=== PATIENT | female | born 1935 | race Caucasian/White ===

== ENCOUNTER → 2017-04-27 | Outpatient (CLI) | payer MEDICARE, OTHER ==
--- NOTE | 2017-04-27 14:54 | REP ---
THORACIC SPINE, THREE VIEWS: HISTORY: Back pain. There is no acute fracture or subluxation. There is loss of height on several mid and lower thoracic intervertebral discs. Osteophytes are present in the mid and lower thoracic spine. There is scoliosis of the mid and lower thoracic spine convex to the right. IMPRESSION: Degenerative change as described above.
--- NOTE | 2017-04-27 14:55 | REP ---
CERVICAL SPINE, SEVEN VIEWS: HISTORY: Neck pain. The cervical spine is visualized from C1 to the C6-7 level in the lateral radiographs. There is no acute fracture. The C4-5 through C6-7 intervertebral discs are decreased in height consistent with disc degeneration. Osteophytes are present on C4 through 6. There neural foramina are not well seen, however, the appears to be narrowing of the C5 neural foramina secondary to uncinate process hypertrophy. There are 2 mm of anterior subluxation of C4 on 5. This is unchanged with flexion and reduces to 1.5 mm with extension. IMPRESSION: Degenerative change as described above.
== END ==
LOC: M CLY 13:27
PROVIDERS: ATTEND Family Medicine
DX: M50.30 Other cervical disc degeneration, unspecified cervical region (principal); M54.6 Pain in thoracic spine
CPT/HCPCS: 72050; 72072; G0463

== ENCOUNTER → 2019-03-11 | Outpatient (CLI) | payer MEDICARE, OTHER ==
--- NOTE | 2019-03-11 14:40 | REP ---
CHEST X-RAY: Three views. HISTORY: Chronic obstructive pulmonary disease. COMPARISON CHEST X-RAY: December 13, 2006. 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 The aorta is more tortuous. Heart size is borderline. Cardiothoracic ratio today measures 47.6%. Pulmonary vasculature is not increased. Pleural angles are sharp. IMPRESSION: Chronic discoid atelectasis left base. Otherwise no acute disease. The heart size is borderline.
== END ==
LOC: M CLY 13:33
PROVIDERS: ATTEND Family Medicine
DX: J98.11 Atelectasis (principal); J44.9 Chronic obstructive pulmonary disease, unspecified
CPT/HCPCS: 71046; G0463

== ENCOUNTER → 2019-05-02 | Outpatient (REF) | payer MEDICARE, OTHER ==
[2019-05-02 17:36] LABS: CALCIUM LEVEL 9.2 MG/DL (8.8-10.2); CREATININE FOR GFR 1.06 MG/DL (0.55-1.30); GLOMERULAR FILTRATION RATE 52.8 (>32); POTASSIUM SERUM 4.6 MEQ/L (3.5-5.1)
== END ==
LOC: M SFHCCLAY 13:39
PROVIDERS: ATTEND Nurse Practitioner Family
DX: I10 Essential (primary) hypertension (principal)

== ENCOUNTER → 2019-08-21 | Outpatient (REF) | payer MEDICARE, OTHER | LOC: M LAB REF 13:07 | PROVIDERS: ATTEND Internal Medicine Pulmonary Disease | DX: J20.9 Acute bronchitis, unspecified (principal) | CPT/HCPCS: 87070; 87077; 87186; 87205; 87804; G0463 ==

== ENCOUNTER → 2019-09-19 | Outpatient (CLI) | payer MEDICARE, OTHER ==
--- NOTE | 2019-09-19 15:22 | REP ---
Clinical: Cough. Technique: PA and lateral. Comparison: 03/11/2019. Findings: Chronic changes related to COPD and emphysematous disease. No acute consolidation, effusion, or pneumothorax. Mediastinum and cardiac silhouette are stable within normal limits. Skeletal structures demonstrate chronic degenerative changes and scoliosis. Impression: Chronic stable changes. No obvious acute process. Electronically Signed by Rey Armstrong MD 09/19/2019 03:14 P
== END ==
LOC: M CLY 14:49
PROVIDERS: ATTEND Family Medicine
DX: R05 Cough (principal)
CPT/HCPCS: 71046; G0463

== ENCOUNTER → 2021-07-05 | Outpatient (REF) | payer MEDICARE, OTHER ==
[2021-07-05 16:42] LABS: BASO # 0.1 10^3/uL (0.0-0.2); BASO % 0.7 % (0.0-1.0); EOS # 0.2 10^3/uL (0.0-0.5); EOS % 2.1 % (0.0-3.0); HEMATOCRIT 43.2 % (36.0-47.0); HEMOGLOBIN 13.8 g/dl (12.0-15.5); LYMPH # 1.5 10^3/uL (1.5-5.0); LYMPH % 21.4 % (24.0-44.0); MEAN CORPUSCULAR HEMOGLOBIN 30.3 pg (27.0-33.0); MEAN CORPUSCULAR HGB CONC 31.9 g/dl (32.0-36.5); MEAN CORPUSCULAR VOLUME 94.7 fl (80.0-96.0); MONO # 0.6 10^3/uL (0.0-0.8); MONO % 8.6 % (2.0-8.0); NEUTROPHILS # 4.7 10^3/uL (1.5-8.5); NEUTROPHILS % 67.1 % (36.0-66.0); PLATELET COUNT, AUTOMATED 238 10^3/uL (150-450); RED BLOOD COUNT 4.56 10^6/uL (4.00-5.40); WHITE BLOOD COUNT 7.1 10^3/uL (4.0-10.0)
[2021-07-05 17:21] LABS: ALBUMIN 3.6 GM/DL (3.2-5.2); BILIRUBIN,TOTAL 0.6 MG/DL (0.2-1.0); CALCIUM LEVEL 9.5 MG/DL (8.8-10.2); CREATININE FOR GFR 0.96 MG/DL (0.55-1.30); GLOMERULAR FILTRATION RATE 58.9 (>32); MAGNESIUM LEVEL 2.6 MG/DL (1.8-2.4); POTASSIUM SERUM 3.9 MEQ/L (3.5-5.1); TOTAL PROTEIN 6.9 GM/DL (6.4-8.2)
== END ==
LOC: M SFHCCLAY 11:52
PROVIDERS: ATTEND Nurse Practitioner Family
DX: I10 Essential (primary) hypertension (principal)

== ENCOUNTER → 2022-01-20 | Outpatient (REF) | payer MEDICARE, OTHER ==
[2022-01-21 11:18] LABS: BASO % 0.5 % (0.0-1.0); EOS # 0.3 10^3/uL (0.0-0.5); EOS % 3.3 % (0.0-3.0); HEMATOCRIT 43.3 % (36.0-47.0); HEMOGLOBIN 14.1 g/dl (12.0-15.5); LYMPH # 1.4 10^3/uL (1.5-5.0); LYMPH % 16.9 % (24.0-44.0); MEAN CORPUSCULAR HEMOGLOBIN 31.3 pg (27.0-33.0); MEAN CORPUSCULAR HGB CONC 32.6 g/dl (32.0-36.5); MEAN CORPUSCULAR VOLUME 96.2 fl (80.0-96.0); MONO # 0.6 10^3/uL (0.0-0.8); MONO % 7.1 % (2.0-8.0); PLATELET COUNT, AUTOMATED 230 10^3/uL (150-450); WHITE BLOOD COUNT 8.3 10^3/uL (4.0-10.0)
[2022-01-21 11:24] LABS: ALBUMIN 3.7 GM/DL (3.2-5.2); ALT/SGPT 28 U/L (12-78); BILIRUBIN,TOTAL 0.7 MG/DL (0.2-1.0); BLOOD UREA NITROGEN 15 MG/DL (7-18); C REACTIVE PROTEIN QUANTITATIV 8.42 MG/DL (0.00-0.30); CALCIUM LEVEL 9.9 MG/DL (8.8-10.2); CARBON DIOXIDE LEVEL 32 MEQ/L (21-32); CHLORIDE LEVEL 103 MEQ/L (98-107); CREATININE FOR GFR 0.99 MG/DL (0.55-1.30); GLOMERULAR FILTRATION RATE 56.8 (>32); GLUCOSE, FASTING 108 MG/DL (70-100); POTASSIUM SERUM 3.6 MEQ/L (3.5-5.1); RHEUMATOID FACTOR QUANT < 10.0 IU/ML (<15.0); SODIUM LEVEL 139 MEQ/L (136-145); TOTAL PROTEIN 7.3 GM/DL (6.4-8.2)
[2022-01-21 11:39] LABS: ERYTHROCYTE SEDIMENTATION RATE 39 mm/hr (0-30)
[2022-01-24 23:07] LABS: ANA (HEP2) Negative (.); CYCLIC CITRULLINATED PEPTIDE 8 units (0-19); Lyme Disease IgG/IgM Antibodie <0.91 ISR (0.00-0.90); Lyme Disease IgM Ab Quantitati <0.80 index (0.00-0.79)
== END ==
LOC: M SFHCCLAY 13:49
PROVIDERS: ATTEND Physician Assistant
DX: M25.50 Pain in unspecified joint (principal)

== ENCOUNTER → 2022-09-05 | Outpatient (REF) | payer MEDICARE, OTHER | LOC: M SFHCRHEU 14:56 | PROVIDERS: ATTEND Internal Medicine | DX: M06.4 Inflammatory polyarthropathy (principal); L40.9 Psoriasis, unspecified; M79.10 Myalgia, unspecified site; Z11.59 Encounter for screening for other viral diseases ==

== ENCOUNTER → 2022-09-07 | Outpatient (REF) | payer MEDICARE, OTHER ==
[2022-09-07 13:48] LABS: BASO % 0.6 % (0.0-1.0); EOS # 0.5 10^3/uL (0.0-0.5); EOS % 8.2 % (0.0-3.0); HEMATOCRIT 44.8 % (36.0-47.0); HEMOGLOBIN 13.9 g/dl (12.0-15.5); LYMPH # 1.6 10^3/uL (1.5-5.0); LYMPH % 25.2 % (24.0-44.0); MEAN CORPUSCULAR HEMOGLOBIN 30.3 pg (27.0-33.0); MEAN CORPUSCULAR VOLUME 97.6 fl (80.0-96.0); MONO # 0.6 10^3/uL (0.0-0.8); MONO % 9.7 % (2.0-8.0); NEUTROPHILS # 3.5 10^3/uL (1.5-8.5); PLATELET COUNT, AUTOMATED 262 10^3/uL (150-450); RED BLOOD COUNT 4.59 10^6/uL (4.00-5.40); WHITE BLOOD COUNT 6.3 10^3/uL (4.0-10.0)
[2022-09-07 14:10] LABS: ERYTHROCYTE SEDIMENTATION RATE 30 mm/hr (0-30)
[2022-09-07 14:11] LABS: ALBUMIN 3.5 GM/DL (3.2-5.2); ALKALINE PHOSPHATASE 68 U/L (45-117); ALT/SGPT 23 U/L (12-78); AST/SGOT 15 U/L (7-37); BILIRUBIN,DIRECT 0.2 MG/DL (0.0-0.2); BILIRUBIN,TOTAL 0.5 MG/DL (0.2-1.0); BLOOD UREA NITROGEN 11 MG/DL (7-18); CALCIUM LEVEL 9.9 MG/DL (8.8-10.2); CARBON DIOXIDE LEVEL 28 MEQ/L (21-32); CHLORIDE LEVEL 105 MEQ/L (98-107); COMPLEMENT C3 144 MG/DL (90-180); COMPLEMENT C4 33 MG/DL (10-40); GLOMERULAR FILTRATION RATE > 60.0 (>32); GLUCOSE, FASTING 77 MG/DL (70-100); IRON (FE) 90 UG/DL (50-170); PHOSPHORUS LEVEL 2.7 MG/DL (2.5-4.9); POTASSIUM SERUM 3.5 MEQ/L (3.5-5.1); SODIUM LEVEL 139 MEQ/L (136-145); TOTAL PROTEIN 7.1 GM/DL (6.4-8.2)
[2022-09-07 14:35] LABS: HEPATITIS B SURFACE ANTIBODY NEGATIVE (POSITIVE); VITAMIN B12 LEVEL 379 PG/ML (247-911)
[2022-09-07 14:45] LABS: HEPATITIS B SURFACE ANTIGEN NEGATIVE (NEGATIVE)
[2022-09-07 14:58] LABS: CREATININE,RANDOM URINE 28.5 MG/DL; TOTAL PROTEIN,RANDOM URINE < 5.0 MG/DL (0.0-12.0)
[2022-09-07 15:13] LABS: HEPATITIS C VIRUS ABY INDEX < 0.0 INDEX (<0.8)
[2022-09-07 15:41] LABS: APPEARANCE, URINE MANUAL CLEAR (CLEAR); BILIRUBIN, URINE MANUAL NEGATIVE (NEGATIVE); BLOOD URINE MANUAL NEGATIVE (NEGATIVE); COLOR, URINE MANUAL LT YELLOW (YELLOW); GLUCOSE, URINE (UA) MANUAL NEGATIVE (NEGATIVE); KETONE, URINE MANUAL NEGATIVE (NEGATIVE); LEUKOCYTE ESTERASE, URINE MAN POSITIVE (NEGATIVE); NITRITE, URINE MANUAL NEGATIVE (NEGATIVE); PROTEIN, URINE MANUAL NEGATIVE (NEGATIVE); SPECIFIC GRAVITY,URINE MANUAL 1.025 (1.002-1.035); UROBILINOGEN, URINE MANUAL NORMAL (NORMAL)
[2022-09-07 16:29] LABS: BACTERIA, URINE SMALL AMOUNT; RBC, URINE 0-1 /hpf (0-3); SQUAMOUS EPITHELIAL CELL URINE SMALL AMOUNT /hpf (SMALL AMT); WBC, URINE 0-1 /hpf (0-3)
[2022-09-15 10:26] LABS: DRVV SCREEN 34.5 SEC
[2022-09-15 10:49] LABS: PTT LUPUS TYPE ANTICOAG SCREEN 0.9 (0-1.2)
[2022-09-16 23:07] LABS: COMPLEMENT TOTAL (CH50) > 60 U/mL (>41); HEPATITIS B CORE ANTIBODY IGG Negative (Negative); HLA-B27 Negative (.)
== END ==
LOC: M SFHCRHEU 10:02
PROVIDERS: ATTEND Internal Medicine
DX: M06.4 Inflammatory polyarthropathy (principal); L40.9 Psoriasis, unspecified; M79.10 Myalgia, unspecified site; Z11.59 Encounter for screening for other viral diseases

== ENCOUNTER → 2022-10-20 | Outpatient (CLI) | payer MEDICARE, OTHER | LOC: M WHC 11:02 | PROVIDERS: ATTEND Internal Medicine | DX: M85.851 Other specified disorders of bone density and structure, right thigh (principal); M85.852 Other specified disorders of bone density and structure, left thigh ==

== ENCOUNTER → 2023-10-03 | Outpatient (REF) | payer MEDICARE, OTHER ==
[2023-10-03 11:55] LABS: HEMATOCRIT 38.3 % (36.0-47.0); HEMOGLOBIN 12.4 g/dl (12.0-15.5); MEAN CORPUSCULAR HEMOGLOBIN 31.2 pg (27.0-33.0); MEAN CORPUSCULAR HGB CONC 32.4 g/dl (32.0-36.5); MEAN CORPUSCULAR VOLUME 96.2 fl (80.0-96.0); PLATELET COUNT, AUTOMATED 259 10^3/uL (150-450); RED BLOOD COUNT 3.98 10^6/uL (4.00-5.40); WHITE BLOOD COUNT 5.5 10^3/uL (4.0-10.0)
[2023-10-03 12:18] LABS: C REACTIVE PROTEIN QUANTITATIV < 0.40 MG/DL (<1.0)
[2023-10-03 12:26] LABS: ALBUMIN 3.3 G/DL (3.2-5.2); ALKALINE PHOSPHATASE 65 U/L (46-116); ALT/SGPT 21 U/L (7.0-40); AST/SGOT 24 U/L (<34); BILIRUBIN,TOTAL 0.6 MG/DL (0.3-1.2); BLOOD UREA NITROGEN 18 MG/DL (9-23); CALCIUM LEVEL 9.8 MG/DL (8.3-10.6); CARBON DIOXIDE LEVEL 30 MMOL/L (20-31); CHLORIDE LEVEL 104 MMOL/L (98-107); CHOLESTEROL LEVEL 231 MG/DL (<200); CHOLESTEROL RISK RATIO 4.09 (<5); CREATININE FOR GFR 0.86 MG/DL (0.55-1.30); GLOMERULAR FILTRATION RATE > 60.0 (>32); GLUCOSE, FASTING 84 MG/DL (74-106); HDL CHOLESTEROL 56.4 MG/DL (>40); LDL CHOLESTEROL 154.2 MG/DL (<100); NON-HDL-C 174.6 MG/DL; POTASSIUM SERUM 4.1 MMOL/L (3.5-5.1); SODIUM LEVEL 138 MMOL/L (136-145); TOTAL PROTEIN 6.2 G/DL (5.7-8.2); TRIGLYCERIDES LEVEL 102 MG/DL (<150)
[2023-10-03 13:03] LABS: ERYTHROCYTE SEDIMENTATION RATE 26 mm/hr (0-30)
== END ==
LOC: M SFHCCLAY 08:22
PROVIDERS: ATTEND Family Medicine
DX: I10 Essential (primary) hypertension (principal); E78.2 Mixed hyperlipidemia; M54.12 Radiculopathy, cervical region

== ENCOUNTER 2024-03-13 19:18 | Emergency (ER) | payer MEDICARE, OTHER ==
[2024-03-13] MEDS ORDERED: FLUT1BLS3 IH (20:11)
[2024-03-13] MEDS ORDERED: PANT40TA29 PO (20:12)
[2024-03-13] MEDS ORDERED: HYDR12.55 PO (20:13)
[2024-03-13] MEDS ORDERED: APRE30TA3 PO (20:14)
[2024-03-13] MEDS ORDERED: TIMO0.5S20 (20:17)
[2024-03-13] MEDS ORDERED: IBUP1TAB7 PO (20:17)
[2024-03-13] MEDS ORDERED: BIMA01SOL (20:17)
[2024-03-13] MEDS ORDERED: ISOVUE-370 76% 100ML VIAL As Ordered ONE (21:23)
[2024-03-13 21:28] LABS: BASO % 0.6 % (0.0-1.0); EOS # 0.2 10^3/uL (0.0-0.5); EOS % 3.1 % (0.0-3.0); HEMATOCRIT 40.4 % (36.0-47.0); HEMOGLOBIN 13.3 g/dl (12.0-15.5); LYMPH # 2.6 10^3/uL (1.5-5.0); LYMPH % 36.8 % (24.0-44.0); MEAN CORPUSCULAR HEMOGLOBIN 31.1 pg (27.0-33.0); MEAN CORPUSCULAR HGB CONC 32.9 g/dl (32.0-36.5); MEAN CORPUSCULAR VOLUME 94.4 fl (80.0-96.0); MONO # 0.6 10^3/uL (0.0-0.8); NEUTROPHILS # 3.7 10^3/uL (1.5-8.5); NEUTROPHILS % 51.4 % (36.0-66.0); PLATELET COUNT, AUTOMATED 256 10^3/uL (150-450); RED BLOOD COUNT 4.28 10^6/uL (4.00-5.40); WHITE BLOOD COUNT 7.1 10^3/uL (4.0-10.0)
[2024-03-13 21:41] LABS: INR 0.99; PROTHROMBIN TIME 12.8 SECONDS (12.5-14.5)
[2024-03-13 21:56] LABS: ALBUMIN 3.3 G/DL (3.2-5.2); ALKALINE PHOSPHATASE 70 U/L (46-116); ALT/SGPT 20 U/L (7.0-40); AST/SGOT 20 U/L (<34); BILIRUBIN,DIRECT < 0.1 MG/DL (<0.4); BILIRUBIN,TOTAL 0.3 MG/DL (0.3-1.2); TOTAL PROTEIN 6.3 G/DL (5.7-8.2)
[2024-03-13 22:45] VITALS: BP 203/87; TEMP 97.2; O2SAT 96
== END 2024-03-13 23:03 | disposition home or self-care (01) ==
LOC: M ED 19:18
DX: R91.8 Other nonspecific abnormal finding of lung field (principal); I45.10 Unspecified right bundle-branch block; I44.7 Left bundle-branch block, unspecified; J45.909 Unspecified asthma, uncomplicated; J44.9 Chronic obstructive pulmonary disease, unspecified; K21.9 Gastro-esophageal reflux disease without esophagitis; Z87.891 Personal history of nicotine dependence; Z88.8 Allergy status to other drugs, medicaments and biological substances; Z88.0 Allergy status to penicillin; Z91.013 Allergy to seafood; Z79.899 Other long term (current) drug therapy; Z79.1 Long term (current) use of non-steroidal anti-inflammatories (NSAID)
CPT/HCPCS: 36415; 71046; 71275; 80047; 80076; 83880; 85025; 85610; 87205; 93005; 99284; Q9967

== ENCOUNTER 2024-03-18 16:53 | Inpatient (IN) | payer MEDICARE, OTHER ==
[~2024-03-18] VITALS: Ht 157.5 cm; Wt 66.7 kg
[~2024-03-18 16:53] MED LIST: APRE30TA3 PO; BIMA01SOL; FLUT1BLS3 IH; HYDR12.55 PO; IBUP1TAB7 PO; PANT40TA29 PO; TIMO0.5S20
[2024-03-18 18:30] LABS: BASO % 0.6 % (0.0-1.0); EOS # 0.1 10^3/uL (0.0-0.5); EOS % 2.1 % (0.0-3.0); HEMATOCRIT 39.2 % (36.0-47.0); HEMOGLOBIN 13.1 g/dl (12.0-15.5); LYMPH # 1.9 10^3/uL (1.5-5.0); MEAN CORPUSCULAR HEMOGLOBIN 31.3 pg (27.0-33.0); MEAN CORPUSCULAR HGB CONC 33.4 g/dl (32.0-36.5); MEAN CORPUSCULAR VOLUME 93.8 fl (80.0-96.0); MONO # 0.5 10^3/uL (0.0-0.8); MONO % 7.4 % (2.0-8.0); NEUTROPHILS # 4.2 10^3/uL (1.5-8.5); NEUTROPHILS % 61.8 % (36.0-66.0); PLATELET COUNT, AUTOMATED 242 10^3/uL (150-450); RED BLOOD COUNT 4.18 10^6/uL (4.00-5.40); WHITE BLOOD COUNT 6.8 10^3/uL (4.0-10.0)
[2024-03-18 18:44] LABS: INR 1.05; PARTIAL THROMBOPLASTIN TIME 37.5 SECONDS (24.8-34.2); PROTHROMBIN TIME 13.4 SECONDS (12.5-14.5)
[2024-03-18 19:03] LABS: ALBUMIN 3.5 G/DL (3.2-5.2); ALKALINE PHOSPHATASE 66 U/L (46-116); ALT/SGPT 27 U/L (7.0-40); AST/SGOT 33 U/L (<34); BILIRUBIN,DIRECT 0.2 MG/DL (<0.4); BILIRUBIN,TOTAL 0.6 MG/DL (0.3-1.2); BLOOD UREA NITROGEN 17 MG/DL (9-23); CALCIUM LEVEL 9.9 MG/DL (8.3-10.6); CARBON DIOXIDE LEVEL 24 MMOL/L (20-31); CHLORIDE LEVEL 105 MMOL/L (98-107); CK-MB VALUE MASS 5.3 NG/ML (<3.6); CREATININE FOR GFR 0.81 MG/DL (0.55-1.30); GLOMERULAR FILTRATION RATE > 60.0 (>32); GLUCOSE, FASTING 94 MG/DL (74-106); SODIUM LEVEL 138 MMOL/L (136-145); TOTAL PROTEIN 6.5 G/DL (5.7-8.2)
[2024-03-18 19:05] LABS: FREE T4 1.12 NG/DL (0.89-1.76); THYROID STIMULATING HORMONE 2.093 uIU/ML (0.55-4.78)
[2024-03-18 19:08] LABS: CPK CREATINE PHOSPHOKINASE 190 U/L (34-145); MB/CK RELATIVE INDEX 2.78 (< OR =4)
[2024-03-18] MEDS ORDERED: TRANEXAMIC ACID INJection 1,000 MG in D5W 100 ML IV ONE (20:05)
[2024-03-18] MEDS ORDERED: ACETAMINOPHEN TAB 650MG DOSE (2X325MG) PO PRN (20:15)
[2024-03-18] MEDS ORDERED: MAALOX 30 ML SUSP *UDC PO PRN (20:15)
[2024-03-18] MEDS ORDERED: MOM 30ML SUSPENSION UDC PO PRN (20:15)
[2024-03-18] MEDS: TRANEXAMIC ACID 100 MG/ML 10ML VIAL NEB ONE (20:22)
[2024-03-18] MEDS ORDERED: ALBUTEROL SULFATE 2.5MG/0.5ML INH NEB SOLN As Ordered ONE (20:30)
[2024-03-18] MEDS: ALBUTEROL SULFATE 2.5MG/0.5ML INH NEB SOLN NEB PRN (20:43)
[2024-03-18] MEDS: SYMBICORT 160/4.5MCG INHALER 6GM INH SCH (20:43)
[2024-03-18 20:55] LABS: MAGNESIUM LEVEL 2.2 MG/DL (1.8-2.4)
[2024-03-18] MEDS: DOCUSATE SODIUM 100MG CAPSULE PO SCH (21:00)
[2024-03-18] MEDS ORDERED: HYDR12CA PO (21:12)
[2024-03-18] MEDS ORDERED: CETI-24 PO (21:12)
[2024-03-18] MEDS ORDERED: RISATAB3 PO (21:12)
[2024-03-18] MEDS ORDERED: FLUT1BLS3 INH (21:12)
[2024-03-18] MEDS ORDERED: IBUP1TAB7 PO (21:12)
[2024-03-18] MEDS ORDERED: ALBU8.5H INH (21:12)
[2024-03-18] MEDS ORDERED: EPIP0.3I2 IM (21:12)
[2024-03-18] MEDS ORDERED: BIMA01SOL OU (21:12)
[2024-03-18] MEDS ORDERED: TIMO0.5S20 OU (21:12)
[2024-03-18] MEDS ORDERED: PANT-23 PO (21:12)
[2024-03-18] MEDS ORDERED: HOME MED LIST COMPLETE! XX SCH (21:15)
[2024-03-18 23:42] VITALS: BP 147/82; TEMP 97.8; O2SAT 93
[2024-03-19] VITALS (9 sets, daily range): BP systolic 122–158; BP diastolic 58–82; TEMP 97.3–98; O2SAT 93–98
[2024-03-19] MEDS: LIDOCAINE 5% (LIDODERM) PATCH TD SCH (01:30)
[2024-03-19] MEDS: DEXTROMETHORPHAN 60MG/10ML SUSP 90ML BTL(DELSYM) PO PRN (01:30)
[2024-03-19] MEDS: TRANEXAMIC ACID INJection 1,000 MG in D5W 100 ML IV ONE (01:30)
[2024-03-19] MEDS: IPRATROPIUM 0.5MG/ALBUTEROL 2.5MG INH SOL UD 3ML (DUONEB) NEB SCH (01:33)
[2024-03-19 05:51] LABS: HEMATOCRIT 37.8 % (36.0-47.0); HEMOGLOBIN 12.5 g/dl (12.0-15.5); MEAN CORPUSCULAR HEMOGLOBIN 30.9 pg (27.0-33.0); MEAN CORPUSCULAR HGB CONC 33.1 g/dl (32.0-36.5); MEAN CORPUSCULAR VOLUME 93.6 fl (80.0-96.0); PLATELET COUNT, AUTOMATED 223 10^3/uL (150-450); RED BLOOD COUNT 4.04 10^6/uL (4.00-5.40); WHITE BLOOD COUNT 6.8 10^3/uL (4.0-10.0)
[2024-03-19 06:04] LABS: ALBUMIN 2.8 G/DL (3.2-5.2); ALKALINE PHOSPHATASE 59 U/L (46-116); ALT/SGPT 18 U/L (7.0-40); AST/SGOT 22 U/L (<34); BILIRUBIN,TOTAL 0.6 MG/DL (0.3-1.2); BLOOD UREA NITROGEN 16 MG/DL (9-23); CALCIUM LEVEL 9.3 MG/DL (8.3-10.6); CARBON DIOXIDE LEVEL 25 MMOL/L (20-31); CHLORIDE LEVEL 108 MMOL/L (98-107); CREATININE FOR GFR 0.78 MG/DL (0.55-1.30); GLOMERULAR FILTRATION RATE > 60.0 (>32); GLUCOSE, FASTING 95 MG/DL (74-106); POTASSIUM SERUM 3.6 MMOL/L (3.5-5.1); SODIUM LEVEL 142 MMOL/L (136-145); TOTAL PROTEIN 5.8 G/DL (5.7-8.2)
[2024-03-19] MEDS ORDERED: ALBUTEROL 90 MCG/ACT 8GM HFA INHALER INH PRN (07:10)
[2024-03-19] MEDS: LACTOBACILLUS ACIDOPHILUS CAP (BACID) PO SCH (08:56)
[2024-03-19] MEDS: CETIRIZINE (ZyrTEC) 10 MG TAB PO SCH (08:56)
[2024-03-19] MEDS: TIMOLOL MALEATE 0.5% OPHTH SOLN 5 ML OU SCH (08:56)
[2024-03-19] MEDS: PANTOPRAZOLE 40MG TAB (PROTONIX) PO SCH (08:56)
[2024-03-19] MEDS ORDERED: ADVAIR HFA 230/21MCG INHALER INH SCH (09:00)
[2024-03-19] MEDS ORDERED: PANTOPRAZOLE 40MG VIAL IV SCH (09:00)
[2024-03-19 13:10] LABS: HEMATOCRIT 39.4 % (36.0-47.0); HEMOGLOBIN 12.8 g/dl (12.0-15.5)
[2024-03-19] MEDS: TRANEXAMIC ACID 100 MG/ML 10ML VIAL NEB SCH (16:26)
[2024-03-19 18:06] LABS: HEMATOCRIT 37.3 % (36.0-47.0); HEMOGLOBIN 12.4 g/dl (12.0-15.5)
[2024-03-19] MEDS: OTEZLA 30 MG PO SCH (20:10)
[2024-03-19] MEDS: LATANOPROST 0.005% OPHTH SOLN 2.5 ML OU SCH (20:11)
[2024-03-20] VITALS (29 sets, daily range): BP systolic 108–148; BP diastolic 55–83; TEMP 97.2–98.1; O2SAT 88–98
[2024-03-20 00:27] LABS: HEMATOCRIT 36.6 % (36.0-47.0); HEMOGLOBIN 12.2 g/dl (12.0-15.5)
[2024-03-20 05:23] LABS: BASO % 0.6 % (0.0-1.0); EOS # 0.1 10^3/uL (0.0-0.5); EOS % 2.5 % (0.0-3.0); HEMATOCRIT 36.1 % (36.0-47.0); HEMOGLOBIN 11.9 g/dl (12.0-15.5); LYMPH # 1.8 10^3/uL (1.5-5.0); MEAN CORPUSCULAR HEMOGLOBIN 31.5 pg (27.0-33.0); MEAN CORPUSCULAR VOLUME 95.5 fl (80.0-96.0); MONO # 0.4 10^3/uL (0.0-0.8); NEUTROPHILS # 2.8 10^3/uL (1.5-8.5); NEUTROPHILS % 54.7 % (36.0-66.0); PLATELET COUNT, AUTOMATED 220 10^3/uL (150-450); RED BLOOD COUNT 3.78 10^6/uL (4.00-5.40); WHITE BLOOD COUNT 5.2 10^3/uL (4.0-10.0)
[2024-03-20 05:49] LABS: BLOOD UREA NITROGEN 16 MG/DL (9-23); CALCIUM LEVEL 8.9 MG/DL (8.3-10.6); CARBON DIOXIDE LEVEL 26 MMOL/L (20-31); CHLORIDE LEVEL 111 MMOL/L (98-107); CREATININE FOR GFR 0.76 MG/DL (0.55-1.30); GLOMERULAR FILTRATION RATE > 60.0 (>32); GLUCOSE, FASTING 84 MG/DL (74-106); MAGNESIUM LEVEL 2.2 MG/DL (1.8-2.4); POTASSIUM SERUM 3.8 MMOL/L (3.5-5.1); SODIUM LEVEL 142 MMOL/L (136-145)
[2024-03-20] MEDS ORDERED: propofoL 200 MG/20 ML VIAL As Ordered ONE (08:55)
[2024-03-20] MEDS ORDERED: LIDOCAINE 2% 100MG/5ML SDV (FOR ANES.) As Ordered ONE (08:55)
[2024-03-20] MEDS ORDERED: ROCURONIUM BROMIDE 50MG/5ML VIAL As Ordered ONE (08:55)
[2024-03-20] MEDS ORDERED: SUGAMMADEX SODIUM 500 MG/5 ML VIAL (BRIDION) As Ordered ONE (08:55)
[2024-03-20] MEDS ORDERED: ONDANSETRON 4MG 2ML VIAL As Ordered ONE (08:58)
[2024-03-20] MEDS ORDERED: MIDAZOLAM INJ 2MG/2ML VIAL As Ordered ONE (09:00)
[2024-03-20] MEDS ORDERED: fentaNYL 100 MCG/2 ML INJECTION As Ordered ONE (09:00)
[2024-03-20] MEDS: THROMBIN 5,000 UNITS VIAL As Ordered ONE (09:33)
[2024-03-20] MEDS: EPINEPHrine 1MG/10ML SYRINGE 1.5IN As Ordered ONE (09:34)
[2024-03-20] MEDS: CETACAINE SPRAY 5GM As Ordered ONE (09:34)
[2024-03-20] MEDS: LIDOCAINE 4% TOPICAL SOLN 50 ML BTL As Ordered ONE (09:35)
[2024-03-20] MEDS ORDERED: ACETAMINOPHEN 1000MG 100ML IV BAG As Ordered ONE (12:06)
[2024-03-20] MEDS ORDERED: ISOVUE-370 76% 100ML VIAL As Ordered ONE (16:43)
[2024-03-21] VITALS (14 sets, daily range): BP systolic 119–139; BP diastolic 58–65; TEMP 97.7–98.3; O2SAT 90–99
[2024-03-21 06:09] LABS: BASO % 0.1 % (0.0-1.0); HEMATOCRIT 35.4 % (36.0-47.0); HEMOGLOBIN 11.6 g/dl (12.0-15.5); LYMPH # 1.6 10^3/uL (1.5-5.0); LYMPH % 21.5 % (24.0-44.0); MEAN CORPUSCULAR HEMOGLOBIN 30.8 pg (27.0-33.0); MEAN CORPUSCULAR HGB CONC 32.8 g/dl (32.0-36.5); MEAN CORPUSCULAR VOLUME 93.9 fl (80.0-96.0); MONO # 0.5 10^3/uL (0.0-0.8); MONO % 6.5 % (2.0-8.0); NEUTROPHILS # 5.3 10^3/uL (1.5-8.5); NEUTROPHILS % 71.6 % (36.0-66.0); PLATELET COUNT, AUTOMATED 198 10^3/uL (150-450); RED BLOOD COUNT 3.77 10^6/uL (4.00-5.40); WHITE BLOOD COUNT 7.3 10^3/uL (4.0-10.0)
[2024-03-21 06:37] LABS: BLOOD UREA NITROGEN 21 MG/DL (9-23); CALCIUM LEVEL 9.2 MG/DL (8.3-10.6); CARBON DIOXIDE LEVEL 26 MMOL/L (20-31); CHLORIDE LEVEL 110 MMOL/L (98-107); CREATININE FOR GFR 0.77 MG/DL (0.55-1.30); GLOMERULAR FILTRATION RATE > 60.0 (>32); GLUCOSE, FASTING 104 MG/DL (74-106); POTASSIUM SERUM 3.8 MMOL/L (3.5-5.1); SODIUM LEVEL 142 MMOL/L (136-145)
[2024-03-21] MEDS ORDERED: AMOX875T2 PO (09:53)
[2024-03-21] MEDS ORDERED: PROBCAP14 PO (09:55)
== END 2024-03-21 13:20 | disposition home health service (06) | DRG 204 ==
LOC: M ED 16:53 → M ED INP 20:12 → ENRESERV 23:06 → M PCU 23:45
PROVIDERS: ADMIT Internal Medicine; ATTEND Internal Medicine
PROC: 0CJS8ZZ Inspection of Larynx, Via Natural or Artificial Opening Endoscopic (ICD-10-PCS; 2024-03-20)
PROC: 0BJ08ZZ Inspection of Tracheobronchial Tree, Via Natural or Artificial Opening Endoscopic (ICD-10-PCS; principal; 2024-03-20 11:15)
DX: R04.2 Hemoptysis (principal); J98.11 Atelectasis; R91.8 Other nonspecific abnormal finding of lung field; I10 Essential (primary) hypertension; K21.9 Gastro-esophageal reflux disease without esophagitis; J44.9 Chronic obstructive pulmonary disease, unspecified; J45.909 Unspecified asthma, uncomplicated; L40.50 Arthropathic psoriasis, unspecified; H40.9 Unspecified glaucoma; M50.30 Other cervical disc degeneration, unspecified cervical region; K59.09 Other constipation; M19.90 Unspecified osteoarthritis, unspecified site; I25.10 Atherosclerotic heart disease of native coronary artery without angina pectoris; J43.1 Panlobular emphysema; Z66 Do not resuscitate; Z90.49 Acquired absence of other specified parts of digestive tract; Z98.41 Cataract extraction status, right eye; Z98.42 Cataract extraction status, left eye; Z85.42 Personal history of malignant neoplasm of other parts of uterus; Z87.891 Personal history of nicotine dependence; Z79.899 Other long term (current) drug therapy; Z88.0 Allergy status to penicillin; Z88.1 Allergy status to other antibiotic agents; Z88.5 Allergy status to narcotic agent; Z88.6 Allergy status to analgesic agent; Z88.8 Allergy status to other drugs, medicaments and biological substances; Z91.013 Allergy to seafood

== ENCOUNTER → 2024-04-10 | Outpatient (CLI) | payer MEDICARE, OTHER ==
[~2024-04-10] MED LIST changes: +ALBU8.5H INH; +AMOX875T2 PO; +BIMA01SOL OU; +CETI-24 PO; +EPIP0.3I2 IM; +FLUT1BLS3 INH; +HYDR12CA PO; +PANT-23 PO; +PROBCAP14 PO; +RISATAB3 PO; +TIMO0.5S20 OU
== END ==
LOC: M PLAIMG 09:56
PROVIDERS: ATTEND Internal Medicine Pulmonary Disease
DX: R91.1 Solitary pulmonary nodule (principal); R91.8 Other nonspecific abnormal finding of lung field; D35.02 Benign neoplasm of left adrenal gland

== ENCOUNTER → 2024-05-13 | Outpatient (CLI) | payer MEDICARE, OTHER | LOC: M PLARAD 10:31 | PROVIDERS: ATTEND Internal Medicine Pulmonary Disease | DX: R91.8 Other nonspecific abnormal finding of lung field (principal) | CPT/HCPCS: 78815; A9552 ==

== ENCOUNTER → 2024-08-21 | Outpatient (CLI) | payer MEDICARE, OTHER | LOC: M CLY 10:23 | PROVIDERS: ATTEND Physician Assistant | DX: S81.801A Unspecified open wound, right lower leg, initial encounter (principal); X58.XXXA Exposure to other specified factors, initial encounter; Y92.9 Unspecified place or not applicable; Y93.9 Activity, unspecified; Y99.9 Unspecified external cause status ==

== ENCOUNTER → 2024-08-21 | Outpatient (REF) | payer MEDICARE, OTHER | LOC: M SFHCCLAY 10:02 | PROVIDERS: ATTEND Physician Assistant | DX: S81.801A Unspecified open wound, right lower leg, initial encounter (principal) ==

== ENCOUNTER → 2024-08-21 | Outpatient (CLI) | payer MEDICARE, OTHER | LOC: M RAD 16:38 | PROVIDERS: ATTEND Physician Assistant | DX: S81.801A Unspecified open wound, right lower leg, initial encounter (principal); X58.XXXA Exposure to other specified factors, initial encounter; Y92.9 Unspecified place or not applicable; Y93.9 Activity, unspecified; Y99.9 Unspecified external cause status ==

== ENCOUNTER → 2024-10-16 | Outpatient (REF) | payer MEDICARE, OTHER | LOC: M SFHCCLAY 11:19 | PROVIDERS: ATTEND Nurse Practitioner Family | DX: L03.113 Cellulitis of right upper limb (principal) ==

== ENCOUNTER → 2024-11-25 | Outpatient (CLI) | payer MEDICARE, OTHER | LOC: M WHC 12:37 | PROVIDERS: ATTEND Internal Medicine | DX: M85.89 Other specified disorders of bone density and structure, multiple sites (principal) ==